=== PATIENT | male | born 1975 | race Two or more races ===

== ENCOUNTER 2017-04-02 15:53 | Emergency (ER) | payer OTHER ==
[~2017-04-02] VITALS: Ht 172.7 cm; Wt 112.3 kg
[2017-04-02] MEDS ORDERED: SODIUM CHLORIDE 0.9% 1,000ML IVBOLUS ONE (16:30)
[2017-04-02] MEDS ORDERED: SODIUM CHLORIDE FLUSH 10ML SYR IVF ONE (16:30)
[2017-04-02] MEDS ORDERED: ONDANSETRON 2MG/ML, 2ML IVPush ONE (16:30)
[2017-04-02 16:41] LABS: ASPARTATE AMINO TRANSFERASE 56 U/L (15-37); BLOOD UREA NITROGEN 13 mg/dL (7-18)
[2017-04-02] MEDS ORDERED: ONDANSETRON 2MG/ML, 2ML ONE (16:51)
[2017-04-02 18:33] VITALS: BP 128/73
== END 2017-04-02 20:29 ==
LOC: ED 18:14
DX: E11.65 Type 2 diabetes mellitus with hyperglycemia (principal); R11.0 Nausea; R53.81 Other malaise; I10 Essential (primary) hypertension; R42 Dizziness and giddiness
CPT/HCPCS: 36415; 80053; 81003; 82010; 85025; 93005; 96361; 96374; 99285; J2405; J7030